=== PATIENT | male | born 1960 | race Caucasian/White ===

== ENCOUNTER 2024-09-19 11:05 | Emergency (ER) | payer OTHER ==
[~2024-09-19] VITALS: Ht 182.9 cm; Wt 90.9 kg
[2024-09-19 11:33] LABS: BASO # 0.03 K/mm3 (0.02-0.10); EOS % 5.9 % (0.0-4.0); HEMATOCRIT 44.4 % (42.0-52.0); HEMOGLOBIN 15.2 g/dL (13.5-18.0); LYMPH# 2.04 K/mm3 (1.50-4.00); MEAN CELL VOLUME 95 fl (78-100); MEAN CORPUSCULAR HEMOGLOBIN 33 pg (27-31); MEAN CORPUSCULAR HGB CONC 34 g/dL (33-37); MEAN PLATELET VOLUME 8.7 fl (7.4-10.4); MONO # 0.59 K/mm3 (0.20-0.80); NEU # 3.63 K/mm3 (1.40-6.50); PLATELET COUNT 248 K/mm3 (130-400); RED BLOOD COUNT 4.68 M/mm3 (4.20-5.60); RED CELL DISTRIBUTION WIDTH 11.8 % (11.5-14.5); WHITE BLOOD COUNT 6.7 K/mm3 (4.8-10.8)
[2024-09-19 11:39] LABS: ALBUMIN 4.3 g/dL (3.4-4.8)
[2024-09-19 11:40] LABS: CALCIUM 9.7 mg/dL (8.3-10.5)
[2024-09-19 11:42] LABS: TOTAL PROTEIN 7.6 g/dL (6.2-8.1)
[2024-09-19 11:44] LABS: TOTAL BILIRUBIN 0.3 mg/dL (0.2-1.2)
[2024-09-19] MEDS ORDERED: NS 1,000 ML IV SCH (11:45)
[2024-09-19] MEDS ORDERED: Ondansetron 4 MG/2 ML VIAL IV ONE (11:45)
[2024-09-19] MEDS ORDERED: Iohexol 300 - 100 ML VIAL IV ONE (12:21)
[2024-09-19] MEDS ORDERED: NS 100 ML IV ONE (12:22)
[2024-09-19] MEDS ORDERED: Ketorolac 30 MG/ML VIAL IV ONE (13:15)
[2024-09-19] MEDS ORDERED: NEXIUM20 MG PO (13:22)
[2024-09-19 13:35] LABS: PH-URINE 6.5 (5.0 - 8.0); URINE APPEARANCE CLOUDY (CLEAR); URINE COLOR DARK YELLOW (YELLOW); URINE GLUCOSE NEGATIVE (NEGATIVE); URINE KETONE NEGATIVE (NEGATIVE); URINE PROTEIN(semi-quant) 1+ (NEGATIVE)
[2024-09-19 13:36] LABS: URINE BILIRUBIN NEGATIVE (NEGATIVE); URINE BLOOD 3+ (NEGATIVE); URINE LEUKOCYTE ESTERASE 1+ (NEGATIVE); URINE NITRATE POSITIVE (NEGATIVE); URINE WBC >50 /hpf (0-3)
[2024-09-19] MEDS ORDERED: cefTRIAXone 1 G in Water For Injection,Sterile 10 ML IV ONE (13:45)
[2024-09-19] MEDS ORDERED: CEPHALEXIN500 M1 PO (13:50)
[2024-09-19] MEDS ORDERED: KETOROLAC10 MG PO (13:50)
[2024-09-19] MEDS ORDERED: ZOFRAN ODT4 MG PO (13:50)
[2024-09-19 14:07] VITALS: BP 122/72
== END 2024-09-19 14:09 | disposition home or self-care (01) ==
LOC: ED 11:05
PROVIDERS: Nurse Practitioner
DX: N13.2 Hydronephrosis with renal and ureteral calculous obstruction (principal); N39.0 Urinary tract infection, site not specified; Z96.0 Presence of urogenital implants
CPT/HCPCS: J0696; J1885; J2405; J7030; Q9967